=== PATIENT | female | born 1945 | race Caucasian/White ===

== ENCOUNTER 2020-12-04 14:54 | Outpatient (CLI) | payer MEDICARE, SELFPAY ==
--- NOTE | ~2020-12-04 | DEXA_ITS ---
Bone Density Report Name: Char Tripp Age: 75 Sex: Female Ethnicity: White Date of : 1945 Indication: osteopenia; monitoring treatment; inflammatory bowel disease; cancer; asthma or emphysema; postmenopausal Referring Provider: Debi Sandy Study: Bone densitometry was performed. Exam Date: December 04, 2020 Accession number: [id number] Bone Density: Region BMD T-score Z-score Classification AP Spine (L1-L4) 0.932 -1.0 1.4 Normal Femoral Neck (Left) 0.603 -2.2 -0.1 Osteopenia Total Hip (Left) 0.761 -1.5 0.3 Osteopenia Total Hip Bilateral Avg 0.751 -1.6 0.3 Osteopenia Femoral Neck (Right) 0.635 -1.9 0.2 Osteopenia Total Hip (Right) 0.740 -1.7 0.2 Osteopenia World Health Organization criteria for BMD impression classify patients as: Normal (T-score at or above -1.0), Osteopenia (T-score between -1.0 and -2.5), or Osteoporosis (T-score at or below -2.5). 10-year Fracture Risk: FRAX not reported because: Treated for osteoporosis Previous Exams: Region Exam Age BMD T-score BMD Change BMD Change Date g/cm2 vs Baseline vs Previous AP Spine(L1-L4) 12/04/2020 75 0.932 -1.0 -0.073(-7.2%)# -0.022(-2.3%) 06/23/2018 73 0.953 -0.9 -0.051(-5.1%)# -0.029(-2.9%)* 06/18/2016 71 0.982 -0.6 -0.022(-2.2%)# 0.051(5.4%)* 02/13/2014 69 0.931 -1.1 -0.073(-7.3%)# -0.069(-6.9%)# 10/27/2011 66 1.000 -0.4 -0.004(-0.4%)# -0.004(-0.4%)# 07/24/2009 64 1.004 -0.4 Total Hip(Left) 12/04/2020 75 0.761 -1.5 0.006(0.8%)# -0.034(-4.3%)* 06/23/2018 73 0.795 -1.2 0.041(5.4%)# 0.034(4.5%)* 06/18/2016 71 0.761 -1.5 0.006(0.8%)# 0.019(2.5%) 02/13/2014 69 0.742 -1.6 -0.012(-1.6%)# -0.047(-6.0%)# 10/27/2011 66 0.789 -1.3 0.035(4.6%)# 0.035(4.6%)# 07/24/2009 64 0.754 -1.5 Total Hip(Right) 12/04/2020 75 0.740 -1.7 -0.016(-2.1%)# -0.020(-2.7%) 06/23/2018 73 0.760 -1.5 0.005(0.6%)# 0.006(0.8%) 06/18/2016 71 0.755 -1.5 -0.001(-0.1%)# -0.004(-0.5%) 02/13/2014 69 0.758 -1.5 0.003(0.4%)# -0.005(-0.6%)# 10/27/2011 66 0.763 -1.5 0.007(1.0%)# 0.007(1.0%)# 07/24/2009 64 0.756 -1.5 *Denotes significance at 95% confidence level, LSC for AP Spine = 0.022 g/cm2, LSC for Total Hip = 0.027 g/cm2 Clinical Information Provided by Patient: Is being treated for osteoporosis Has used the following medications: Actonel (i.e. risedronate), Vitamin D, Calcium Has the following medical conditions: Asthma or Emphysema, Cancer, Inf
--- NOTE | ~2020-12-04 | MM_ITS ---
EXAMINATION: MM screening [facility] BI w joshua HISTORY: Screening mammogram TECHNIQUE: Craniocaudal and mediolateral oblique 3-D tomosynthesis images were obtained and synthetic 2-D images were generated. CAD analysis was submitted and interpreted. COMPARISON: 06/23/2018, 06/18/2016, 02/13/2014 BREAST PARENCHYMAL COMPOSITION: The breasts are heterogeneously dense, which may obscure small masses . FINDINGS: There is no evidence of suspicious mass, calcification, or architectural distortion to sugg est malignancy in either breast. There has been no suspicious interval change. IMPRESSION: 1. No mammographic evidence of malignancy. 2. Recommend routine screening mammography in one year. BI-RADS Category 1: Negative Reviewed, dictated and finalized at location A.
== END 2020-12-04 14:55 | disposition home or self-care (01) ==
LOC: ANHIMG 15:00
PROVIDERS: PCP Family Medicine; Visit Provider Nurse Practitioner Family
DX: Z12.31 Encounter for screening mammogram for malignant neoplasm of breast (principal); Z78.0 Asymptomatic menopausal state; M85.852 Other specified disorders of bone density and structure, left thigh; M85.851 Other specified disorders of bone density and structure, right thigh
CPT/HCPCS: 77063; 77067; 77080

== ENCOUNTER 2022-01-20 15:08 | Outpatient (CLI) | payer MEDICARE, SELFPAY ==
[2022-01-20 18:53] LABS: Basophils Absolute Auto 0.1 K/mm3 (0.0-0.1); Basophils Percent Auto 1.2 % (0.2-1.2); Eosinophils Absolute Auto 0.2 K/mm3 (0-0.3); Eosinophils Percent Auto 2.5 % (0-4.4); Hematocrit 44.8 % (37.0-47.0); Hemoglobin 14.8 g/dL (12.0-15.0); Immature Granulocyte Absolute 0.02 K/mm3 (0.00-0.031); Immature Granulocyte Percent A 0.2 % (0-0.5); Lymphocytes Absolute Auto 2.53 K/mm3 (0.9-3.2); Mean Corpuscular Hemoglobin 31.9 pg (26-34); Mean Corpuscular Volume 96.6 fl (80-100); Mean Platelet Volume 11.4 fl (7.4-10.4); Monocytes Absolute Auto 0.5 K/mm3 (0.1-0.6); Monocytes Percent Auto 6.6 % (2.6-8.5); Neutrophils Absolute Auto 4.8 K/mm3 (1.3-6.7); Neutrophils Percent Auto 58.5 % (45.5-73.1); Platelet Count Result 219 k/mm3 (150-375); Red Blood Count 4.64 M/mm3 (4.2-5.4); Red Cell Distribution Width 12.7 % (11.5-14.5); White Blood Count 8.2 K/mm3 (4.5-10.0)
[2022-01-20 19:12] LABS: Alanine Aminotransferase 27 U/L (6-35); Albumin Level 4.7 g/dL (3.5-5.1); Alkaline Phosphatase 73 U/L (38-126); Anion Gap 2 mmol/L (8-16); Aspartate Amino Transferase 31 U/L (14-36); Bilirubin,Total 0.4 mg/dL (0.2-1.3); Blood Urea Nitrogen 13 mg/dL (7-17); Calcium 9.3 mg/dL (8.4-10.2); Carbon Dioxide 29 mmol/L (22-30); Chloride 104 mmol/L (98-107); Cholesterol 219 mg/dL (0-200); Estimated Glomerular Filt Rate 54; Glucose 115 mg/dL (65-110); HDL Direct 79 mg/dL; Potassium 4.6 mmol/L (3.4-5.0); Sodium 135 mmol/L (137-145); Triglycerides 87 mg/dL (<150)
[2022-01-20 19:31] LABS: LDL Cholesterol Direct 99 mg/dL
[2022-01-20 19:37] LABS: Thyroid Stimulating Hormone 0.619 uIU/mL (0.465-4.680)
[2022-01-20 20:16] LABS: Vitamin D 25 Hydroxy 41.2 ng/mL
== END 2022-01-20 15:09 | disposition home or self-care (01) ==
LOC: ANHGOSHLAB 15:14
PROVIDERS: PCP Family Medicine; Visit Provider Nurse Practitioner Family
DX: E03.9 Hypothyroidism, unspecified (principal); I10 Essential (primary) hypertension; E55.9 Vitamin D deficiency, unspecified; E78.5 Hyperlipidemia, unspecified
CPT/HCPCS: 36415; 80053; 80061; 82306; 84443; 85025

== ENCOUNTER 2022-01-28 08:36 | Outpatient (CLI) | payer MEDICARE, SELFPAY ==
--- NOTE | ~2022-01-28 | MM_ITS ---
EXAMINATION: MM screening [facility] BI w joshua HISTORY: Screening mammogram TECHNIQUE: Craniocaudal and mediolateral oblique 3-D tomosynthesis images were obtained and synthetic 2-D images were generated. CAD analysis was submitted and interpreted. COMPARISON: 12/04/2020, 06/23/2018, 06/18/2016 bilateral screening mammogram examinations BREAST PARENCHYMAL COMPOSITION: The breasts are heterogeneously dense, which may obscure small masses . FINDINGS: Right breast: There is asymmetry in the upper outer quadrant right breast. Diagnostic right mammogram is recommended, with ultrasound if required. Left breast: There is no evidence of suspicious mass, calcification, or architectural distortion to s uggest malignancy in either breast. There has been no suspicious interval change. IMPRESSION: 1. Upper outer quadrant right breast asymmetry 2. Diagnostic right mammogram is recommended, with ultrasound if required BI-RADS Category 0: Incomplete: Needs additional imaging evaluation. Reviewed, dictated and finalized at location A.
== END 2022-01-28 08:37 | disposition home or self-care (01) ==
PROVIDERS: PCP Family Medicine; Visit Provider Nurse Practitioner Family
DX: Z12.31 Encounter for screening mammogram for malignant neoplasm of breast (principal); R92.8 Other abnormal and inconclusive findings on diagnostic imaging of breast
CPT/HCPCS: 77063; 77067

== ENCOUNTER 2022-01-28 09:15 | Outpatient (CLI) | payer MEDICARE, SELFPAY ==
[2022-01-28 19:57] LABS: Hemoglobin A1C 5.1 % (<5.7)
== END 2022-01-28 09:16 | disposition home or self-care (01) ==
PROVIDERS: PCP Family Medicine; Visit Provider Nurse Practitioner Family
DX: R73.01 Impaired fasting glucose (principal)
CPT/HCPCS: 36415; 83036

== ENCOUNTER 2022-02-17 13:04 | Outpatient (CLI) | payer MEDICARE, SELFPAY ==
--- NOTE | ~2022-02-17 | MMUS_ITS ---
EXAMINATION: MM diagnostic [facility] RT w joshua, US breast RT complete HISTORY: Upper outer quadrant right breast asymmetry reported on 01/28/2022 screening mammogram examina tion TECHNIQUE: Additional 3-D tomosynthesis images of the right breast were performed and synthetic 2-D i mages were generated. CAD analysis was submitted and interpreted. High resolution complete right elsi st ultrasound examination including all 4 quadrants and subareolar area was performed. COMPARISON: 01/28/2022 bilateral screening mammogram examination FINDINGS: MAMMOGRAPHIC FINDINGS: No suspicious mass, architectural distortion, malignant calcification, skin thickening or retraction is detected. Heterogeneously dense stroma may obscure masses. Right breast ultrasound examination was performed. ULTRASOUND: No suspicious mass or shadowing, cyst or other significant sonographic finding is noted. IMPRESSION: 1. No mammographic evidence of malignancy 2. Routine mammographic screening is recommended BI-RADS Category 1: Negative Reviewed, dictated and finalized at location A. IMPRESSION: 1. No mammographic evidence of malignancy 2. Routine mammographic screening is recommended BI-RADS Category 1: Negative
== END 2022-02-17 13:05 | disposition home or self-care (01) ==
PROVIDERS: PCP Family Medicine; Visit Provider Nurse Practitioner Family
DX: R92.8 Other abnormal and inconclusive findings on diagnostic imaging of breast (principal)
CPT/HCPCS: 76641; 77061; 77065; G0279

== ENCOUNTER 2022-05-14 08:20 | Emergency (ER) | payer MEDICARE, SELFPAY ==
--- NOTE | 2022-05-14 08:29 | ED.URI ---
HPI - URI/Sore Throat General Chief Complaint: Ear Stated Complaint: COUGH/EARACHE Time Seen by Provider: 05/14/22 08:29 Source: patient Mode of arrival: ambulatory Limitations: no limitations History of Present Illness HPI Narrative: Char is a 77-year-old female patient presenting to the clinic today with complaints of cough, chest congestion, head congestion, and earache x6 days. She reports no fever or chills. She did an at-home COVID test and it was negative. She has been taking Robitussin for the cough and this is not helping. MD elicited complaint: sore throat and nasal congestion Related Data Home Medications Medication Instructions Recorded Confirmed famotidine 20 mg tablet (Pepcid AC) 20 mg PO DAILY 10/18/20 05/14/22 escitalopram oxalate 10 mg tablet 30 mg PO DAILY 01/20/22 05/14/22 (Lexapro) Allergies Allergy/AdvReac Type Severity Reaction Status Date / Time aripiprazole [From [facility]] AdvReac Mild visual Verified 01/20/22 14:16 disturbances caffeine AdvReac Jittery Verified 05/14/22 08:38 Review of Systems Review of Systems: Pertinent positives per HPI. Patient denies any fever, chills, rash, headache, visual changes, dizziness, shortness of breath, chest pain, palpitations, nausea, vomiting, diarrhea, constipation, abdominal pain, or any urinary issues. [facility] Past Medical History Medical History Allergies Anxiety disorder, unspecified Arthritis Asthma Depression GERD (gastroesophageal reflux disease) High risk for fracture due to osteoporosis by DEXA scan (~2018) History of tongue cancer Hyperlipidemia Hypothyroid Mammogram normal (~2018) Migraines Osteopenia Vitamin D deficiency Surgical History Surgical History H/O right breast biopsy History of colonoscopy (~2009) Family History Family History Father Lung cancer Social History Social History Social History: pt does not drink caffeine Smoking status: Former smoker Second hand tobacco smoke exposure: No Alcohol intake: current Alcohol use details: pt states she drinks seldom or socially Substance use: never Substance use type: does not use Additional living arrangements comments: Gender identity (if verbalized by the patient): Female Spiritual care concerns: No Agree to blood products: Yes Comments At the time of my signature, I reviewed and agree with the nursing past medical, surgical, social, and family history. There is no relevant family history pertinent to the patient complaint. Exam Narrative: General: Well-developed, well nourished, in no apparent distress Head: Normocephalic, atraumatic Eyes: Pupils equally round and reactive to light bilaterally, EOM intact, sclera and conjunctive clear, no discharge, lids normal Ears: TMs intact, dull, mild bulging, ear canals clear, no drainage, grossly hearing normal. Nose: Nares patent, clear nasal discharge, mild inflammation, no sinus tenderness. Mouth: Oral pharynx without lesions or masses, good dentition, MMM. Postnasal drip Neck: Supple, trachea midline, no enlargement of anterior or posterior cervical nodes, no thyroid masses or goiter palpable. Cardio: Regular rate and rhythm, s1 and s2 normal, no murmur appreciated. Resp: Clear to auscultation bilaterally, no rhonchi, rales, wheezing or rubs Course Course Emergency Course: Portions of this record may have been created with voice recognition software. Level of Care: Express Care Visit Vital Signs Vital signs: Vital Signs Temperature 36.8 C 05/14/22 08:31 Pulse Rate 83 05/14/22 08:31 Respiratory Rate 16 05/14/22 08:31 Blood Pressure 106/67 05/14/22 08:31 Pulse Oximetry 96 05/14/22 08:31 Oxyg
[2022-05-14 08:31] VITALS: BP 106/67; PULSE 83; RESP 16; TEMP 36.8; O2SAT 96
== END 2022-05-14 09:48 | disposition home or self-care (01) ==
PROVIDERS: Emergency Provider Nurse Practitioner Family; PCP Family Medicine
DX: J06.9 Acute upper respiratory infection, unspecified (principal); R05.9 Cough, unspecified; H69.93 Unspecified Eustachian tube disorder, bilateral; R09.82 Postnasal drip; Z87.891 Personal history of nicotine dependence; M19.90 Unspecified osteoarthritis, unspecified site; F41.9 Anxiety disorder, unspecified; F32.A Depression, unspecified; K21.9 Gastro-esophageal reflux disease without esophagitis; E78.5 Hyperlipidemia, unspecified; E03.9 Hypothyroidism, unspecified; M85.80 Other specified disorders of bone density and structure, unspecified site; Z85.810 Personal history of malignant neoplasm of tongue
CPT/HCPCS: 99213; G0463

== ENCOUNTER 2023-06-28 13:34 | Outpatient (CLI) | payer MEDICARE, SELFPAY ==
--- NOTE | ~2023-06-28 | DEXA_ITS ---
Bone Density Report Name: BLAKE VARELA Age: 78 Sex: Female Ethnicity: White Date of : 1945 Indication: osteopenia; monitoring treatment; height loss; postmenopausal cancer; asthma or emphysema; Referring Provider: CARLI BENOIT Study: Bone densitometry was performed. Exam Date: June 28, 2023 Accession number: [id number] Bone Density: Region BMD T-score Z-score Classification AP Spine(L1-L4) 0.942 -1.0 1.6 Normal Femoral Neck (Left) 0.628 -2.0 0.2 Osteopenia Total Hip (Left) 0.754 -1.5 0.4 Osteopenia Femoral Neck (Right) 0.653 -1.8 0.5 Osteopenia Total Hip (Right) 0.775 -1.4 0.6 Osteopenia Total Hip Mean 0.765 -1.5 0.5 Osteopenia World Health Organization criteria for BMD impression classify patients as: Normal (T-score at or above -1.0), Osteopenia (T-score between -1.0 and -2.5), or Osteoporosis (T-score at or below -2.5). 10-year Fracture Risk: FRAX not reported because: Treated for osteoporosis Previous Exams: Region Exam Age BMD T-score BMD Change BMD Change Date g/cm2 vs Baseline vs Previous AP Spine (L1-L4) 06/28/2023 78 0.942 -1.0 0.010 (1.1%) 0.010 (1.1%) 12/04/2020 75 0.932 -1.0 0.000 (0.0%) -0.022 (-2.3%) 06/23/2018 73 0.953 -0.9 0.022 (2.4%) -0.029 (-2.9%) 06/18/2016 71 0.982 -0.6 0.051 (5.4%)* 0.051 (5.4%)* 02/13/2014 69 0.931 -1.1 Total Hip(Left) 06/28/2023 78 0.754 -1.5 0.012 (1.6%) -0.007 (-0.9%) 12/04/2020 75 0.761 -1.5 0.019 (2.5%) -0.034 (-4.3%) 06/23/2018 73 0.795 -1.2 0.053 (7.1%)* 0.034 (4.5%)* 06/18/2016 71 0.761 -1.5 0.019 (2.5%) 0.019 (2.5%) 02/13/2014 69 0.742 -1.6 Total Hip(Right) 06/28/2023 78 0.775 -1.4 0.017 (2.2%) 0.035 (4.8%)* 12/04/2020 75 0.740 -1.7 -0.018 (-2.4%) -0.020 (-2.7%) 06/23/2018 73 0.760 -1.5 0.002 (0.3%) 0.006 (0.8%) 06/18/2016 71 0.755 -1.5 -0.004 (-0.5%) -0.004 (-0.5%) 02/13/2014 69 0.758 -1.5 *Denotes significance at 95% confidence level, LSC for AP Spine = 0.022 g/cm2, LSC for Total Hip = 0.027 g/cm2 Clinical Information Provided by Patient: Is being treated for osteoporosis Has used the following medications: Vitamin D, Calcium Has the following medical conditions: Asthma or Emphysema, Cancer Patient maximum height was 67.75 Menopause Age: 52 No regular weight bearing exercise Onset of menses at age 15 Number of children 0 Impression: T
--- NOTE | ~2023-06-28 | MM_ITS ---
EXAMINATION: MM screening [facility] BI w joshua HISTORY: Screening mammogram TECHNIQUE: Craniocaudal and mediolateral oblique 3-D tomosynthesis images were obtained and synthetic 2-D images were generated. CAD analysis was submitted and interpreted. COMPARISON: 02/17/2022, 01/28/2022, 12/04/2020, 06/23/2018 BREAST PARENCHYMAL COMPOSITION: The breasts are heterogeneously dense, which may obscure small masses . FINDINGS: No suspicious mass, calcification, or architectural distortion are identified in either tam ast to suggest malignancy. There has been no suspicious interval change. IMPRESSION: 1. No mammographic evidence of malignancy. 2. Recommend routine screening mammography in one year. BI-RADS Category 1: Negative Reviewed, dictated and finalized at location A. E SETTER
== END 2023-06-28 13:35 | disposition home or self-care (01) ==
LOC: ANHIMG 13:39
PROVIDERS: PCP Family Medicine; Visit Provider Family Medicine
DX: Z12.31 Encounter for screening mammogram for malignant neoplasm of breast (principal); Z78.0 Asymptomatic menopausal state; Z13.820 Encounter for screening for osteoporosis; M85.852 Other specified disorders of bone density and structure, left thigh; M85.851 Other specified disorders of bone density and structure, right thigh
CPT/HCPCS: 77063; 77067; 77080

== ENCOUNTER 2024-07-08 13:17 | Emergency (ER) | payer MEDICARE, SELFPAY ==
[2024-07-08 13:39] VITALS: BP 136/78; PULSE 89; RESP 16; TEMP 36.8; O2SAT 99
--- NOTE | 2024-07-08 13:45 | ED.EXTPRO ---
HPI - Extremity Problem General Chief complaint: Extremity Problem,Nontraumatic Stated complaint: Sore Right Arm Time Seen by Provider: 07/08/24 13:45 Source: patient and RN notes reviewed Mode of arrival: ambulatory Limitations: no limitations History of Present Illness HPI Narrative: 79-year-old female presents concern for right arm and shoulder pain. She denies any injury or trauma. Reports she overused the arm a week or so ago when she was cleaning out a closet. Reports she also lays when the ER when she is watching TV on her sofa. She reports positions with no pain at all in pain is exacerbated with range of motion, abduction of the extremity MD Complaint: extremity pain Related Data Allergies Allergy/AdvReac Type Severity Reaction Status Date / Time aripiprazole (From [facility]) AdvReac Mild visual Verified 07/08/24 13:25 disturbances caffeine AdvReac Jittery Verified 07/08/24 13:25 Review of Systems Review of Systems: CONSTITUTIONAL: Denies malaise, chills, sweats, or fever. CARDIOVASCULAR: Denies chest pain, palpitations, or edema. RESPIRATORY: Denies cough or dyspnea. SKIN: Denies rash or itching, bruising, redness, swelling. MUSCULOSKELETAL: Reports right arm and shoulder pain NEUROLOGIC: Denies numbness, weakness All systems reviewed & are unremarkable except as noted in HPI and below PMFSH Past Medical History Medical History Allergies Arthritis High risk for fracture due to osteoporosis by DEXA scan (~2018) History of tongue cancer Migraines Osteopenia hx of osteoporosis ( 2019) . treated with aledronate on and off . last dose several years ago Surgical History Surgical History H/O right breast biopsy History of colonoscopy (~2009) Family History Family History Father Lung cancer Social History Social History Social History: pt does not drink caffeine Smoking packs per day: 0.25 Smoking cigarettes per day: 5.0 Years smoked: 1.5 Smoking pack-years: 0.38 Smoking status: Former smoker Tobacco type: cigarettes Second hand tobacco smoke exposure: No Alcohol intake: current Alcohol use details: pt states she drinks seldom or socially Substance use: never Substance use type: does not use Do You Feel Safe in your Home?: Yes Lack of Transportation: No Lack of Food: Never True Current Housing: I Have Housing Concerned About Future Housing: No Difficulty Paying Gas/Electric Bills: No Difficulty Paying for Meds: No Currently Unemployed: No Education: Bachelor's Degree Difficulty w/ Childcare or Family Care: No Living arrangements: with family Additional living arrangements comments: Occupation/Education: retired Gender identity (if verbalized by the patient): Female Spiritual care concerns: No Agree to blood products: Yes Comments At time of signature, agree with nursing past medical, surgical, social and family history. There is no relevant family history pertinent to the presenting complaint Exam Narrative: GENERAL: Well-appearing, well-nourished, and in no acute distress. HEAD: Normocephalic, atraumatic. EYES: PERRLA, conjunctivae clear NECK: Supple. CHEST: Speaks in full sentences. No respiratory distress. HEART: Regular rate and rhythm. Normal and equal peripheral pulses. EXTREMITIES: Right upper extremity has normal strength and sensation, normal range of motion. No edema or ecchymosis. 5/5 strength with shoulder abduction, adduction. Normal sensation with sensitivity to light touch and pain. Shoulder joint tenderness, no tenderness to the humerus or elbow. No open wounds, no skin tenting, no devitalized tissue or atrophy, no trophic changes, no obvious deformity, alignment normal, nearby joints and structures intact. Distal pulses palpable and equal bilaterally, skin warm, dry, pink. Capillary refill less than 3 seconds. SKIN: Warm, dry, no rash. NEURO: Alert and oriented x3. PSYCH: Normal mood and affect Course Course Emergency Course: Patient is aware of diagnosis, understands and agrees to treatment plan. Anticipatory guidance given. Patient agrees to follow-up as directed and is aware of reasons to seek care at the emergency department. Portions of this record may have been created with voice recognition software Level of Care: Express Care Visit Vital Signs Vital signs: Vital Signs Temperature 98.2 F 07/08/24 13:39 Pulse Rate 89 07/08/24 13:39 Respiratory Rate 16 07/08/24 13:39 Blood Pressure 136/78 07/08/24 13:39 Pulse Oximetry 99 07/08/24 13:39 Temperature 98.2 F 07/08/24 13:39 Pulse Rate 89 07/08/24 13:39 Respiratory Rate 16 07/08/24 13:39 Blood Pressure 136/78 07/08/24 13:39 Pulse Oximetry 99 07/08/24 13:39 Reviewed. MDM - Extremity (Nontraumatic) MDM Narrative Medical decision making narrative: Patients pain is consistent with musculoskeletal etiology. No signs of neurological or vascular compromise on exam. Compartments and tissues are soft without signs of compartment syndrome. Pain is felt appropriate for further evaluation on an outpatient basis. Critical Care Time Critical Care Time Critical Care Time: No Discharge Plan Discharge Clinical Impression: Acute shoulder pain Patient Disposition: Home, Self-Care Condition: Stable Instructions: Shoulder Pain (ED) Additional Instructions: Avoid activities that cause pain until the pain subsides. Ice to the area 20-30 minutes 4-6 times a day Elevate above heart Sling as directed for comfort for the next 3-5 days Tylenol for lesser pain Ibuprofen 600mg (3 tabs) regularly for the next 2-3 days for the inflammation Follow up with orthopedics or your primary care provider if the condition is not improving within 1 week. If the condition worsens with numbness, tingling, decrease sensation with weakness seek treatment in the emergency room immediately. Patient Language: Korean Prescriptions: New lidocaine [Lidocaine Pain Relief] 4 % adhesive patch,medicated 1 patch topical BID PRN (Reason: pain) Qty: 10 0RF No Action Zyrtec 10 mg capsule 10 mg PO BID Qty: 60 0RF Arnuity Ellipta 100 mcg/actuation blister with device 1 inh inhalation Q24H Qty: 90 3RF clonazepam 1 mg tablet 1 mg PO DAILY PRN (Reason: anxiety) Qty: 30 0RF Rx Instructions: Take .5-1 tablet at bedtime. levothyroxine 75 mcg tablet See Rx Instructions .ROUTE .COMPLEX Qty: 90 1RF Dose Instruction: TAKE 1 TABLET BY MOUTH DAILY Rx Instructions: TAKE 1 TABLET BY MOUTH DAILY bupropion HCl 300 mg tablet extended release 24 hr 300 mg PO QAM Qty: 90 1RF escitalopram oxalate 20 mg tablet 20 mg PO DAILY Qty: 90 1RF lovastatin 40 mg tablet 40 mg PO DAILY Qty: 90 1RF Follow-up/Referrals: Crystal Arias MD [Primary Care Provider] - Grady Stallings MD [Physician] - Time of Disposition: 13:57
== END 2024-07-08 14:00 | disposition home or self-care (01) ==
PROVIDERS: Emergency Provider Nurse Practitioner; PCP Family Medicine
DX: M25.511 Pain in right shoulder (principal); Z87.891 Personal history of nicotine dependence
CPT/HCPCS: 99213; A4565; G0463